=== PATIENT | female | born 2000 | race Caucasian/White ===

== ENCOUNTER → 2020-02-17 14:11 | Outpatient (BNVA) | payer SELFPAY | PROVIDERS: PCP Pediatrics; Visit Provider Advanced Practice Midwife | DX: Z30.09 Encounter for other general counseling and advice on contraception (principal) | CPT/HCPCS: 99212; Q3014 ==

== ENCOUNTER → 2020-03-07 10:05 | Outpatient (BNVA) | payer SELFPAY | PROVIDERS: PCP Pediatrics; Visit Provider Advanced Practice Midwife | DX: Z30.46 Encounter for surveillance of implantable subdermal contraceptive (principal); E28.2 Polycystic ovarian syndrome | CPT/HCPCS: 11982 ==

== ENCOUNTER → 2020-05-10 15:08 | Outpatient (BNVA) | payer BC, SELFPAY | PROVIDERS: PCP Pediatrics; Visit Provider Advanced Practice Midwife ==